=== PATIENT | female | born 1955 | race Caucasian/White ===

== ENCOUNTER 2024-10-09 08:09 | Outpatient (AMB) | payer OTHER, SELFPAY ==
--- NOTE | 2024-10-09 08:18 | ORTHONT_ITS ---
Vital signs 10/09/24 08:19 Height 1.63 m Height Method Stated Weight 100.698 kg Weight Measurement Method Standing Scale BMI 38.0 BP 123/79 Blood Pressure Source Automatic Cuff Blood Pressure Location Left Upper Arm Position Sitting Respiration 18 Pulse 75 Pulse Source Monitor Temp 97.3 F Temp Source Temporal Artery Scan Pulse Oximetry (%) 95 Oxygen Delivery Method Room Air Med/Allergies Allergies & Medications Allergies No Known Allergies Allergy (Verified 10/09/24 08:20) Medication Reconciliation cholecalciferol (vitamin D3) 25 mcg (1,000 unit) tablet 25 mcg PO QDAY 10/09/24 [History Confirmed 10/09/24] ibuprofen 800 mg tablet 800 mg PO Q8H 10/09/24 [History Confirmed 10/09/24] meloxicam 7.5 mg tablet 7.5 mg PO QDAY 10/09/24 [History Confirmed 10/09/24] pyridoxine (vitamin B6) 10 mg tablet 10 mg PO QDAY 10/09/24 [History Confirmed 10/09/24] Exam Exam Patient is in no acute distress and is cooperative with the examination today. Breathing is nonlabored. Patient has a normal mood and affect. The patient has a gait that is nonantalgic Bilateral extremities were evaluated and demonstrates sensation intact to light touch. Palpable pedal pulses are present. No significant edema is present. Bilateral hips were examined. The patient has no pain with log roll of the hips. Internal rotation to 30 degrees and external rotation to 30 degrees is painless. Negative FADIR. Left knee was examined today. The left knee is in reasonable alignment. Range of motion from 0-120 degrees. Knee is stable to varus and valgus as well as AP translation with <5mm. Patient has a negative McMurrays. There is no pain with patellofemoral compression and no crepitus noted. The knee is nontender to palpation. The right knee was also examined. The right knee is in neutral alignment. Range of motion from 0-120 degrees.The knee is tender to palpation medially. She has a positive Mona's. The knee feels stable varus and valgus stress as well as AP translation Assessment and Plan Problem List (1) Arthritis of right knee: Status: Acute Plan: Patient is a pleasant 69-year-old female with right knee pain and right knee arthritis. The pain has been ongoing for 4 months but has improved with anti- inflammatories. We discussed natural history of arthritis as well as degenerative meniscal tears. We discussed that I would like to treat this nonoperatively if possible. We will get x-rays to better evaluate the severity of arthritis. We discussed hyaluronic acid injections as well as cortisone injections today. We will continue conservative treatment Advanced Care Planning Discussion Advance care planning discussed with:: patient Office Procedures GNS Level of Care Nursing/Assessment Patient Status: Initial/New Patient Nursing Assessment/Reassesment: Medication Reconciliation, Update PMH in EMR and Vital Signs Coordination of Care: Complex Care and Chronic Disease 1-5, Education Complex Pt/Fam, Consent,records obtained, informed consent, 1 Ins Authorization, Lab and Imaging orders, Results/Orders obtained and Staff clarify orders New Patient Charge New Patient Point Assignment: 1124 New Patient Point Charge: OCCUPATIONAL THERAPIST'S ASSISTANT Level 4 ([id number]) MA Intake Visit Data Collection New Patient or Established: New Patient (never been to [facility]) Reason for Visit:: RIGHT KNEE PAIN Seen by Clinical Staff ONLY (RN/MA): No PCP or OBGYN visit in last 3 months: Yes Hx Now: No Do You Feel Safe at Home: Yes Authorities Contacted: N/A Questionairres Past Medical History Past Medical History Have you ever been diagnosed with any of the following: Respiratory Problems Smoking: No Smoking Exposure: No Subjective Visit Visit for: new patient and knee (RIGHT) Immunization / Flu Flu Vaccine in the Last 12 Months: No Flu Vaccine Exclusion Criteria: Refused by Patient History of Present Illness Chief complaint: Bilateral knee pain worse on the right Date of injury / onset of symptoms: JUNE 2024 Date of 1st surgery (if applicable): 20 YEARS AGO KENY Wall is a pleasant 69-year-old female with right knee pain has been ongoing for months. She had an MRI that demonstrated a meniscal tear as well as arthritis of her right knee. She had a prior meniscus surgery on the left side 20 years ago. She has not had any injections. She has tried meloxicam with good relief. The pain is continuing to improve Pain Pain level (0-10): 3 Pain duration: WITH MOVEMENT Pain location: anterior Pain quality: dull, aching and other (specify) (SWELLING) Pain timing: night, increases with activity and stairs Associated signs & symptoms: stiffness Ambulatory data Ambulatory device: none Treatments Number of previous injections: 0 Improvement with previous injections: No Number of Physical Therapy sessions: 5 Improvement with PT: No Improvement with NSAIDS: yes (MELOXICAM) Review of Systems Review of Systems: All systems negative unless otherwise noted in HPI.
[2024-10-09 08:19] VITALS: BP 123/79; PULSE 75; RESP 18; TEMP 36.3; O2SAT 95; BMI 38.0
--- NOTE | 2024-10-09 08:48 | XR_ITS ---
Examination: Bilateral knees 2 views Right lateral knee left lateral knee 2 views Bilateral axial knees single view TECHNIQUE: Bilateral AP knees standing single view, bilateral PA knees standing single view flexion Standing right lateral knee left lateral knee 2 views Bilateral axial knees single view total 5 views Date and time: October 09, 2024 at 0854 hours INDICATIONS: Bilateral knee pain several months. 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
== END 2024-10-09 08:53 | disposition home or self-care (01) ==
PROVIDERS: PCP Family Medicine; Referring Provider Family Medicine; Supervising Provider Orthopaedic Surgery Adult Reconstructive Orthopaedic Surgery; Visit Provider Orthopaedic Surgery Adult Reconstructive Orthopaedic Surgery
DX: M17.11 Unilateral primary osteoarthritis, right knee (principal); M25.561 Pain in right knee
CPT/HCPCS: 73564; 99204; G0463

== ENCOUNTER 2024-11-13 14:27 | Outpatient (AMB) | payer OTHER, SELFPAY ==
--- NOTE | 2024-11-13 14:35 | PD.ORTHCLVIS ---
Vital signs 11/13/24 14:36 Height 1.63 m Height Method Stated Weight 99.053 kg Weight Measurement Method Standing Scale BMI 37.3 BP 113/70 Blood Pressure Source Automatic Cuff Blood Pressure Location Left Upper Arm Position Sitting Respiration 18 Pulse 97 Pulse Source Monitor Temp 97.2 F Temp Source Temporal Artery Scan Pulse Oximetry (%) 97 Oxygen Delivery Method Room Air Med/Allergies Allergies & Medications Allergies No Known Allergies Allergy (Verified 11/13/24 14:37) Medication Reconciliation cholecalciferol (vitamin D3) 25 mcg (1,000 unit) tablet 25 mcg PO QDAY 10/09/24 [History Confirmed 11/13/24] ibuprofen 800 mg tablet 800 mg PO Q8H 10/09/24 [History Confirmed 11/13/24] meloxicam 7.5 mg tablet 7.5 mg PO QDAY 10/09/24 [History Confirmed 11/13/24] pyridoxine (vitamin B6) 10 mg tablet 10 mg PO QDAY 10/09/24 [History Confirmed 11/13/24] Exam Exam Patient is in no acute distress and is cooperative with the examination today. Breathing is nonlabored. Patient has a normal mood and affect. The patient has a gait that is nonantalgic Bilateral extremities were evaluated and demonstrates sensation intact to light touch. Palpable pedal pulses are present. No significant edema is present. Bilateral hips were examined. The patient has no pain with log roll of the hips. Internal rotation to 30 degrees and external rotation to 30 degrees is painless. Negative FADIR. Left knee was examined today. The left knee is in reasonable alignment. Range of motion from 0-120 degrees. Knee is stable to varus and valgus as well as AP translation with <5mm. Patient has a negative McMurrays. There is no pain with patellofemoral compression and no crepitus noted. The knee is nontender to palpation. The right knee was also examined. The right knee is in neutral alignment. Range of motion from 0-120 degrees.The knee is tender to palpation medially. She has a positive Mona's. The knee feels stable varus and valgus stress as well as AP translation Xrays demonstrate bilateral joinjt space narrowing medially Assessment and Plan Problem List (1) Arthritis of right knee: Status: Acute Plan: Patient is a pleasant 69-year-old female with right knee pain and right knee arthritis. The pain has been ongoing for 4 months but has improved with anti-inflammatories. The patient would like a cortisone injection of both knees today Recommend knee cortisone injection as patient would like to proceed with conservative treatment at this time. The risks and benefits of the procedure were reviewed with the patient and patient gave verbal consent to continue with the procedure. Procedure: performed by Dr. Lara Using sterile technique the Right knee was thoroughly prepped with alcohol, and approximately 1 cc of Depo-Medrol 80mg/mL and 4 cc of 0.2% ropivacaine was injected without resistance into the medial tibial femoral joint space. The patient tolerated the procedure. Recommend knee cortisone injection as patient would like to proceed with conservative treatment at this time. The risks and benefits of the procedure were reviewed with the patient and patient gave verbal consent to continue with the procedure. Procedure: performed by Dr. Lara Using sterile technique the left knee was thoroughly prepped with alcohol, and approximately 1 cc of Depo-Medrol 80mg/mL and 4 cc of 0.2% ropivacaine was injected without resistance into the medial tibial femoral joint space. The patient tolerated the procedure. Advanced Care Planning Discussion Advance care planning discussed with:: patient Office Procedures GNS Level of Care Nursing/Assessment Patient Status: Established Patient Nursing Assessment/Reassesment: Medication Reconciliation, Update PMH in EMR and Vital Signs Coordination of Care: Complex Care and Chronic Disease 1-5, Education Complex Pt/Fam, Consent,records obtained, informed consent, Results/Orders obtained and Staff clarify orders Established Patient Charge Established Patient Point Assignment: 95 Established Patient Point Charge: EP Level 3 (80-115) Surgical Proc/IM SQ injection Major Surgical Procedure: Yes (BILATERAL KNEE INJECTION) Medication Given Medication Given Medication Given: Yes Documented Dose Given: 1 Route: Infiitration Medication Given Medication Given Medication Given: Yes Documented Dose Given: 1 Route: Infiitration Medication Given Medication Given Medication Given: Yes Documented Dose Given: 4 Route: Infiitration Medication Given Medication Given Medication Given: Yes Documented Dose Given: 4 Route: Infiitration Office Meds methylprednisolone acetate 80 mg/mL suspension for injection Performing Provider: Jose Lara MD Performing Location: [facility] Administered by: Jose Lara MD on 11/13/24 15:10 Dose Route Admin Location Dispensed Lot Number Expiration Date [facility] Customer Assistance Representative 80 mg intra-articular 1 mL [id number] 08/31/26 [address]-1 [employer] methylprednisolone acetate 80 mg/mL suspension for injection Performing Provider: Jose Lara MD Performing Location: [facility] Administered by: Jose Lara MD on 11/13/24 15:10 Dose Route Admin Location Dispensed Lot Number Expiration Date [facility] Customer Assistance Representative 80 mg intra-articular 1 mL [id number] 08/31/26 [address]-0 [employer] ropivacaine (PF) 2 mg/mL (0.2 %) injection solution Performing Provider: Jose Lara MD Performing Location: [facility] Administered by: Jose Lara MD on 11/13/24 15:10 Dose Route Admin Location Dispensed Lot Number Expiration Date [facility] Customer Assistance Representative 20 mL Infiltration 20 mL [id number] 01/31/26 03873-640-40 [employer] ropivacaine (PF) 2 mg/mL (0.2 %) injection solution Performing Provider: Jose Lara MD Performing Location: [facility] Administered by: Jose Lara MD on 11/13/24 15:10 Dose Route Admin Location Dispensed Lot Number Expiration Date [facility] Customer Assistance Representative 20 mL Infiltration 20 mL [id number] 01/31/26 92907-054-73 [employer] [place] Intake Visit Data Collection New Patient or Established: Established Patient (seen at [facility] within 3 years) Reason for Visit:: RIGHT KNEE PAIN Seen by Clinical Staff ONLY (RN/MA): No PCP or OBGYN visit in last 3 months: Yes Hx Now: No Do You Feel Safe at Home: Yes Authorities Contacted: N/A Questionairres Past Medical History Past Medical History Have you ever been diagnosed with any of the following: Respiratory Problems Smoking: No Smoking Exposure: No Subjective Visit Visit for: follow up visit and knee Immunization / Flu Flu Vaccine in the Last 12 Months: No Flu Vaccine Exclusion Criteria: Refused by Patient History of Present Illness Chief complaint: Bilateral knee pain worse on the right Date of injury / onset of symptoms: JUNE 2024 Date of 1st surgery (if applicable): 20 YEARS AGO KENY Wall is a pleasant 69-year-old female with right knee pain has been ongoing for months. She has [id number] arthritis of both knees. She is going on a trip to [place] and would like a cortisone injection today Personal History BMI Counceling provided: Yes Pain Pain level (0-10): 7 Pain duration: ON AND OFF Pain location: anterior Pain quality: sharp, aching and burning Pain timing: increases with activity Associated signs & symptoms: stiffness Ambulatory data Ambulatory device: none Treatments Number of previous injections: 0 Improvement with previous injections: No Number of Physical Therapy sessions: 5 Improvement with PT: No Improvement with NSAIDS: yes (MELOXICAM) Review of Systems Review of Systems: All systems negative unless otherwise noted in HPI.
[2024-11-13 14:36] VITALS: BP 113/70; PULSE 97; RESP 18; TEMP 36.2; O2SAT 97; BMI 37.3
== END 2024-11-13 14:58 | disposition home or self-care (01) ==
LOC: HODSRG 14:27
PROVIDERS: PCP Family Medicine; Referring Provider Family Medicine; Supervising Provider Orthopaedic Surgery Adult Reconstructive Orthopaedic Surgery; Visit Provider Orthopaedic Surgery Adult Reconstructive Orthopaedic Surgery
DX: M17.11 Unilateral primary osteoarthritis, right knee (principal); M25.561 Pain in right knee; M25.562 Pain in left knee
CPT/HCPCS: 20610; 99213; J1010; J2795; G0463